=== PATIENT | female | born 1950 | race Caucasian/White ===

== ENCOUNTER 2019-07-11 13:24 | Observation (INO) ==
[2019-07-11 13:57] LABS: Basophils # 0.1 10*3/uL (0.0-0.2); Basophils % 0.7 % (0.0-0.8); Eosinophils # 0.2 10*3/uL (0.0-0.87); Eosinophils % 2.3 % (0.00-10.9); Hematocrit 41.9 VOL% (35.7-47.0); Hemoglobin 13.6 GM/DL (12.0-16.0); Immature Granulocytes % 0.3 %; Immature Granulocytes Absolute 0.03 #; Lymphocytes # 1.7 10*3/uL (1.4-4.0); Lymphocytes % 16.6 % (21.3-54.2); Mean Corpuscular HGB Conc 32.5 GM/DL (32-36); Mean Corpuscular Volume 92.9 FL (87-102); Mean Platelet Volume 9.1 FL (9.6-12.0); Monocytes % 7.4 % (1.7-12.7); Neutrophils % 72.7 % (38.7-73.9); Platelet Count 319 T/CUMM (130-400); Red Blood Count 4.51 MC/CUMM (3.8-5.5); Red Cell Distribution Width 11.9 % (9.3-17.3)
[2019-07-11 14:06] LABS: Calcium 9.1 MG/DL (8.5-10.1); Osmolality,Calculated 268.1 MOS/KG (273-304)
[2019-07-11] MEDS ORDERED: DILTIAZEM 50 MG/10 ML VIAL IV STA ×2 (15:47→15:48)
[2019-07-11] MEDS: dilTIAZem Drip 125 MG/125 ML PREMIX IV SCH (16:19)
[2019-07-11 16:26] LABS: INR 1.2; PT Patient Result 12.7 SECS (9.6-12.2)
[2019-07-11] MEDS ORDERED: ONDANSETRON 4 MG/2 ML VIAL IV PRN (16:51)
[2019-07-11] MEDS ORDERED: MAGNESIUM SULF RIDER 4 GM in PREMIX 1 EACH IV PRN (16:51)
[2019-07-11] MEDS ORDERED: MAGNESIUM SULF RIDER 2 GM in PREMIX 1 EACH IV PRN (16:51)
[2019-07-11] MEDS ORDERED: NITROGLYCERIN SL 0.4 MG TABLET SL PRN (16:54)
[2019-07-11] MEDS ORDERED: SODIUM CHLORIDE 0.45% 1,000 ML IV SCH (17:00)
[2019-07-11] MEDS ORDERED: ACETAMINOPHEN 325 MG TABLET PO PRN (17:41)
[2019-07-11] MEDS ORDERED: PROMETHAZINE 25 MG TABLET PO PRN (17:41)
[2019-07-11] MEDS ORDERED: MAGNESIUM HYDROXIDE SUSP 30 ML UDCUP PO PRN (17:41)
[2019-07-11] MEDS ORDERED: ALUMINUM/MAGNES/SIMETH MAX STR 30 ML UDCUP PO PRN (17:41)
[2019-07-11] MEDS ORDERED: ZALEPLON 5 MG CAPSULE PO PRN (17:41)
[2019-07-11] MEDS ORDERED: WARFARIN 3 MG TABLET PO SCH (18:00)
[2019-07-11 18:21] LABS: Troponin I < 0.015 NG/ML (0.00-0.045)
[2019-07-11] MEDS: ENOXAPARIN 80 MG/0.8 ML SYRINGE SUBCUT SCH (18:40)
[2019-07-11 20:41] LABS: Troponin I < 0.015 NG/ML (0.00-0.045)
[2019-07-11] MEDS: FLUTICASONE/SALMETEROL 500-50 DISKUS 14 DOSE INH SCH (20:55)
[2019-07-11] MEDS ORDERED: SIMVASTATIN 10 MG TABLET PO SCH (21:00)
[2019-07-11 22:56] LABS: Troponin I < 0.015 NG/ML (0.00-0.045)
[2019-07-12] MEDS: dilTIAZem Drip 125 MG/125 ML PREMIX IV SCH (02:16)
[2019-07-12 05:13] LABS: INR 1.3; PT Patient Result 14.6 SECS (9.6-12.2)
[2019-07-12 05:47] LABS: Calcium 8.7 MG/DL (8.5-10.1)
[2019-07-12] MEDS: ENOXAPARIN 80 MG/0.8 ML SYRINGE SUBCUT SCH (05:57)
[2019-07-12 07:03] LABS: Risk Ratio 3.64
[2019-07-12 07:42] VITALS: BP 102/52
[2019-07-12] MEDS: POTASSIUM CHLORIDE 20 MEQ TABLET PO PRN ×2 (08:50→11:10)
[2019-07-12] MEDS: FLUTICASONE/SALMETEROL 500-50 DISKUS 14 DOSE INH SCH (08:50)
[2019-07-12] MEDS ORDERED: MAGNESIUM CHLORIDE 64 MG TABLET PO SCH (09:00)
[2019-07-12] MEDS ORDERED: FERROUS SULFATE 325 MG TABLET PO SCH (09:00)
[2019-07-12] MEDS ORDERED: LOSARTAN 50 MG TABLET PO SCH (09:00)
[2019-07-12] MEDS ORDERED: POTASSIUM CHLORIDE 10 MEQ TABLET PO SCH (09:00)
[2019-07-12] MEDS ORDERED: PANTOPRAZOLE 40 MG TABLET PO SCH (09:00)
[2019-07-12] MEDS ORDERED: WARFARIN 3 MG TABLET PO SCH (18:00)
== END 2019-07-12 14:06 | disposition home or self-care (01) ==
LOC: N.EDINP 13:24 → N.ED 13:24 → N.TELES 17:29
PROVIDERS: ADMIT Internal Medicine Cardiovascular Disease; ATTEND Internal Medicine Cardiovascular Disease

== ENCOUNTER 2020-01-09 06:41 | Observation (INO) ==
[2020-01-09] MEDS ORDERED: DILTIAZEM 50 MG/10 ML VIAL IV STA (07:12)
[2020-01-09 07:19] LABS: Basophils % 0.3 % (0.0-0.8); Eosinophils % 0.4 % (0.00-10.9); Hematocrit 46.9 VOL% (35.7-47.0); Hemoglobin 15.3 GM/DL (12.0-16.0); Immature Granulocytes % 0.4 %; Immature Granulocytes Absolute 0.04 #; Lymphocytes # 2.3 10*3/uL (1.4-4.0); Lymphocytes % 20.3 % (21.3-54.2); Mean Corpuscular HGB Conc 32.6 GM/DL (32-36); Mean Corpuscular Volume 92.3 FL (87-102); Mean Platelet Volume 9.4 FL (9.6-12.0); Monocytes % 9.4 % (1.7-12.7); Neutrophils % 69.2 % (38.7-73.9); Platelet Count 363 T/CUMM (130-400); Red Blood Count 5.08 MC/CUMM (3.8-5.5); Red Cell Distribution Width 12.3 % (9.3-17.3); White Blood Count 11.4 T/CUMM (4-12)
[2020-01-09] MEDS ORDERED: dilTIAZem Drip 125 MG/125 ML PREMIX IV SCH ×2 (07:30→09:00)
[2020-01-09 07:53] LABS: Albumin 3.8 G/DL (3.4-5.0); Bilirubin,Total 0.4 MG/DL (0.2-1.0); Calcium 9.4 MG/DL (8.5-10.1); Total Protein 7.5 G/DL (6.4-8.3)
[2020-01-09 08:12] LABS: Thyroid Stimulating Hormone 1.75 uIU/ml (0.358-3.74)
[2020-01-09 08:43] LABS: INR 4.5
[2020-01-09] MEDS ORDERED: MAGNESIUM SULF RIDER 2 GM in PREMIX 1 EACH IV PRN (08:45)
[2020-01-09] MEDS ORDERED: MAGNESIUM SULF RIDER 4 GM in PREMIX 1 EACH IV PRN (08:45)
[2020-01-09] MEDS ORDERED: MORPHINE 4 MG/1 ML VIAL IV PRN (08:45)
[2020-01-09] MEDS ORDERED: ONDANSETRON 4 MG/2 ML VIAL IV PRN (08:45)
[2020-01-09] MEDS ORDERED: NITROGLYCERIN SL 0.4 MG TABLET SL PRN (08:48)
[2020-01-09] MEDS ORDERED: BUDESONIDE 0.5 MG/2 ML NEB RESP TX PRN (08:49)
[2020-01-09] MEDS ORDERED: ALBUTEROL 2.5 MG/3 ML NEB RESP TX PRN ×2 (08:49→10:54)
[2020-01-09] MEDS ORDERED: ESTRADIOL 2 MG TABLET PO SCH (09:00)
[2020-01-09] MEDS ORDERED: LOSARTAN 50 MG TABLET PO SCH (09:00)
[2020-01-09] MEDS ORDERED: FERROUS SULFATE 325 MG TABLET PO SCH (09:00)
[2020-01-09] MEDS ORDERED: PANTOPRAZOLE 40 MG TABLET PO SCH (09:00)
[2020-01-09] MEDS ORDERED: predniSONE 10 MG TABLET PO SCH (09:00)
[2020-01-09] MEDS ORDERED: SODIUM CHLORIDE 0.45% 1,000 ML IV SCH (09:00)
[2020-01-09] MEDS ORDERED: MAGNESIUM CHLORIDE 64 MG TABLET PO SCH (09:00)
[2020-01-09] MEDS ORDERED: DILTIAZEM CD 240 MG CAPSULE PO SCH ×2 (09:00→14:30)
[2020-01-09] MEDS ORDERED: THEOPHYLLINE ER 300 MG TABLET PO SCH (09:00)
[2020-01-09] MEDS ORDERED: POTASSIUM CHLORIDE 10 MEQ TABLET PO SCH (09:00)
[2020-01-09] MEDS ORDERED: cephALEXin 500 MG CAPSULE PO SCH (09:00)
[2020-01-09 10:50] LABS: Apearance,Urine CLEAR (Clear); Bilirubin,Urine Negative (Negative); Blood, Urine Negative (Negative); Glucose,Urine (UA) Negative (Negative); Ketones,Urine Negative (Negative); Mucus,Urine Occasional /LPF (Occasional); Nitrite,Urine Negative (Negative); Protein,Urine Negative; RBC,Urine 3 /HPF (0-4); Squamous Epithelial Cell,Urine Occasional /HPF (0-10); Urine Color Straw (Yellow); Urine Specific Gravity 1.006 (1.001-1.035); Urine Urobilinogen < 2.0 EU/DL (0.2-1.0); WBC,Urine <1 /HPF (0-6)
[2020-01-09] MEDS: PANTOPRAZOLE 40 MG TABLET PO SCH (11:26)
[2020-01-09] MEDS ORDERED: MAGNESIUM HYDROXIDE SUSP 30 ML UDCUP PO PRN (11:30)
[2020-01-09] MEDS ORDERED: DILTIAZEM 90 MG TABLET PO ONE (14:32)
[2020-01-09] MEDS: cephALEXin 500 MG CAPSULE PO SCH ×2 (15:07→21:19)
[2020-01-09] MEDS: MAGNESIUM CHLORIDE 64 MG TABLET PO SCH (15:07)
[2020-01-09] MEDS: FERROUS SULFATE 325 MG TABLET PO SCH (15:08)
[2020-01-09] MEDS: LOSARTAN 50 MG TABLET PO SCH (15:08)
[2020-01-09] MEDS: POTASSIUM CHLORIDE 10 MEQ TABLET PO SCH ×2 (15:08→21:19)
[2020-01-09] MEDS: AMIODARONE 200 MG TABLET PO SCH (15:09)
[2020-01-09] MEDS: THEOPHYLLINE ER (24 HR) 300 MG CAPSULE PO SCH (16:30)
[2020-01-09] MEDS ORDERED: PRAVASTATIN 20 MG TABLET PO SCH (21:00)
[2020-01-09] MEDS: ASCORBIC ACID 500 MG TABLET PO SCH (21:19)
[2020-01-09] MEDS: DILTIAZEM CD 240 MG CAPSULE PO SCH (21:19)
[2020-01-10 05:35] LABS: Basophils # 0.1 10*3/uL (0.0-0.2); Basophils % 0.5 % (0.0-0.8); Eosinophils # 0.2 10*3/uL (0.0-0.87); Eosinophils % 1.6 % (0.00-10.9); Hematocrit 43.6 VOL% (35.7-47.0); Hemoglobin 14.2 GM/DL (12.0-16.0); Immature Granulocytes % 0.4 %; Immature Granulocytes Absolute 0.04 #; Lymphocytes # 1.8 10*3/uL (1.4-4.0); Lymphocytes % 18.7 % (21.3-54.2); Mean Corpuscular HGB Conc 32.6 GM/DL (32-36); Mean Corpuscular Volume 91.6 FL (87-102); Mean Platelet Volume 9.3 FL (9.6-12.0); Monocytes % 8.5 % (1.7-12.7); Neutrophils % 70.3 % (38.7-73.9); Platelet Count 314 T/CUMM (130-400); Red Blood Count 4.76 MC/CUMM (3.8-5.5); White Blood Count 9.5 T/CUMM (4-12)
[2020-01-10 05:46] LABS: INR 2.5; PT Patient Result 25.8 SECS (9.8-11.9)
[2020-01-10 06:14] LABS: Calcium 9.2 MG/DL (8.5-10.1); Osmolality,Calculated 273.5 MOS/KG (273-304)
[2020-01-10] MEDS ORDERED: WARFARIN 3 MG TABLET PO SCH ×2 (07:00→18:00)
[2020-01-10 08:32] VITALS: BP 119/78
[2020-01-10] MEDS: PANTOPRAZOLE 40 MG TABLET PO SCH (08:54)
[2020-01-10] MEDS: MAGNESIUM CHLORIDE 64 MG TABLET PO SCH (08:55)
[2020-01-10] MEDS: AMIODARONE 200 MG TABLET PO SCH (08:55)
[2020-01-10] MEDS: FERROUS SULFATE 325 MG TABLET PO SCH (08:55)
[2020-01-10] MEDS: POTASSIUM CHLORIDE 10 MEQ TABLET PO SCH (08:55)
[2020-01-10] MEDS: ASCORBIC ACID 500 MG TABLET PO SCH (08:55)
[2020-01-10] MEDS: THEOPHYLLINE ER (24 HR) 300 MG CAPSULE PO SCH (08:55)
[2020-01-10] MEDS: LOSARTAN 50 MG TABLET PO SCH (08:56)
[2020-01-10] MEDS: DILTIAZEM CD 240 MG CAPSULE PO SCH (08:56)
[2020-01-10] MEDS: cephALEXin 500 MG CAPSULE PO SCH (08:56)
[2020-01-10] MEDS ORDERED: predniSONE 5 MG TABLET PO SCH (09:00)
[2020-01-10] MEDS ORDERED: SIMVASTATIN 10 MG TABLET PO SCH (21:00)
[2020-01-11] MEDS ORDERED: ESTRADIOL 2 MG TABLET PO SCH (09:00)
[2020-01-12] MEDS ORDERED: WARFARIN 3 MG TABLET PO SCH ×2 (07:00→18:00)
== END 2020-01-10 11:26 | disposition home or self-care (01) ==
LOC: N.ED 06:41 → INTOOBSV 08:45 → N.EDINP 08:45 → N.TELES 10:52
PROVIDERS: ADMIT Internal Medicine Cardiovascular Disease; ATTEND Internal Medicine Cardiovascular Disease